=== PATIENT | female | born 1990 | race Hispanic/Latino ===

== ENCOUNTER 2016-07-21 10:35 | Emergency (ER) | payer OTHER ==
[~2016-07-21] VITALS: Ht 157.5 cm; Wt 31.8 kg
[2016-07-21 11:36] LABS: INFLUENZA VIRUS TYPE A ANTIBOD Negative (NEGATIVE)
[2016-07-21 11:37] LABS: INFLUENZA VIRUS TYPE B ANTIBOD Positive (NEGATIVE)
--- NOTE | 2016-07-21 11:37 | NUR ---
Lab calls, pt flu b positive.
[2016-07-21] MEDS ORDERED: OSELTAMIVIR (TAMIFLU) 75 MG CAP PO ONE (11:45)
[2016-07-21 12:06] VITALS: BP 114/77
== END 2016-07-21 12:08 | disposition home or self-care (01) ==
LOC: ED 10:43
DX: J11.1 Influenza due to unidentified influenza virus with other respiratory manifestations (principal)
CPT/HCPCS: 71020; 87502; 99282; 99283

== ENCOUNTER 2016-10-13 13:53 | Emergency (ER) | payer OTHER ==
[~2016-10-13] VITALS: Ht 157.5 cm; Wt 77.0 kg
[~2016-10-13 13:53] MED LIST: HYDR-3702 PO; OSLT75C PO
--- OUTSIDE RECORDS SUMMARY | 2016-10-13 13:59 | XMS REPORT | Continuity of Care Document ---
Author Author [facility] Address Unknown Phone Unavailable Support Name Relationship Address Phone MONIQUE MONTOYA MD Caregiver [address] [place] [address] BELA VERDIN Next Of Kin [address] [address] Insurance Providers Payer Name Policy Number Subscriber Name Relationship Other1 [id number] Jonathan Verdin 20 Father Advance Directives Directive Response Recorded Date/Time Advanced Directives No 07/21/16 10:43am Chief Complaint and Reason for Visit Chief Complaint Malaise Reason for Visit [id number] Problems Active Problems Medical Problem Onset Date Status Influenza B Unknown Acute Medications Current Home Medications Medication Dose Units Route Directions Days/Qty Instructions Start Date Hydrocodone Bit/Acetaminophen 1 Each 1 Each ORAL Every 4HRS for Pain 15 07/21/16 Oseltamivir Phosphate 75 Mg 75 Mg ORAL Twice A Day 9 07/21/16 Social History Query Response Start Date Stop Date Smoking Status Never smoker Hospital Discharge Instructions No hospital discharge instructions. Plan of Care Discharge Date 07/21/16 12:08pm Disposition 01 HOME OR SELF-CARE Condition at Discharge Stable Instructions/Education Provided Hydrocodone and Acetaminophen Flu, Adult (DC) Prescriptions See Medication Section Additional Instructions/Education Tamiflu 75 mg twice daily for 5 days Over the counter medications as needed for symptoms Hydrocodone 5/325 every 4 hours as needed for cough/pain Return if symptoms worsen Some of your test results may not be complete prior to your leaving the Emergency Department. The Emergency Department is not authorized to give test results over the phone. Please contact the doctor's office listed in this packet of information for your final results. Follow up with your primary care physician or return to the Emergency Department for worsening or worrisome symptoms. * Emergency Department phone number: [phone], x [phone]* MEDICAL RECORD If you need copies of your X-rays, call [phone]. If you need copies of your medical record, including lab results, a signed authorization for release of records will be required. A telephone call for release of Health Information is not allowed. BILLING Billing can sometimes be confusing and frustrating. To help avoid confusion in the future, please take a moment to acquaint yourself with the billing parties for services. SERVICE BILLING [employer]STITUTION [employer] Emergency Room Services [facility] Physician Services [facility] X-rays [facility] Patients will receive bills for services from the appropriate provider. If you have any questions about your [facility] bill, our staff will be happy to assist you. Please call [phone], and ask for the billing department. THANK YOU for choosing [facility] as your emergency care provider! Care Plan and Goals ~~Discharge Care Plan~~ Problem: Influenza B Goal: resolve symptoms Instructions: Take medications as prescribed. Use OTC meds as needed for symptoms. As long there is a cough, still contagious. Functional Status No functional status results. Allergies, Adverse Reactions, Alerts No known allergies. Immunizations No immunization records. Vital Signs Acute Vital Signs Vital Response Date/Time Temperature (Fahrenheit) 98.6 07/21/2016 12:06pm Pulse 97 bpm 07/21/2016 12:06pm Respirations 18 07/21/2016 12:06pm Height 5 ft 2 in Weight 70 lb Body Mass Index 12.0 kg/m^2 Results Laboratory Results Test Name Result Units Flags Reference Collection Date/Time Result Date/ Time Comments Influenza Virus Type A Antibody Negative NEGATIVE 07/21/2016 11:12am 07/21/2016 11:37am Influenza Virus Type B Antibody Positive NEGATIVE 07/21/2016 11:12am 07/21/2016 11:37am Results called to [facility] who read back the results. Called by Richelle Bolton at [phone] Procedures No known history of procedures. Encounters Encounter Location Arrival/Admit Date Discharge/Depart Date Attending Provider Departed Emergency Room [facility] 07/21/16 10:43am 07/21/16 12: 08pm MONIQUE MONTOYA MD Recent Diagnosis
--- NOTE | 2016-10-13 14:39 | NUR ---
Paged radiology for ankle xray.
--- NOTE | 2016-10-13 15:13 | Diagnostic Imaging Report ---
INDICATION: Right ankle pain after injury. COMPARISON: Right foot radiographs performed concurrently. TECHNIQUE: 3 nonweightbearing views of right ankle. FINDINGS: No acute fracture or traumatic malalignment. Joint spaces are well-maintained. Mild soft tissue swelling of the lateral aspect of the ankle. No evidence of osteochondral lesion of the talar dome. IMPRESSION: 1. No acute fracture or traumatic malalignment of the right ankle. Dictated by: Dictated on workstation # [id number]
--- NOTE | 2016-10-13 15:19 | Diagnostic Imaging Report ---
INDICATION: Right foot pain. TECHNIQUE: 3 nonweightbearing views of right foot. FINDINGS: No acute fracture or traumatic malalignment. Joint spaces are well-maintained. Normal osseous mineralization. IMPRESSION: 1. Negative right foot radiographs. Dictated by: Dictated on workstation # [id number]
[2016-10-13 15:56] VITALS: BP 113/82
== END 2016-10-13 15:57 | disposition home or self-care (01) ==
LOC: EDUNIT# 13:53 → ED 13:55
DX: S93.401A Sprain of unspecified ligament of right ankle, initial encounter (principal); S93.601A Unspecified sprain of right foot, initial encounter; W18.40XA Slipping, tripping and stumbling without falling, unspecified, initial encounter; Y92.828 Other wilderness area as the place of occurrence of the external cause; Y99.8 Other external cause status
CPT/HCPCS: 73610; 73630; 99282; L4350